=== PATIENT | female | born 2000 | race Caucasian/White ===

== ENCOUNTER 2022-07-12 16:27 | Emergency (ER) | payer MEDICAID, OTHER ==
[~2022-07-12] VITALS: Ht 167.6 cm; Wt 58.1 kg
[2022-07-12 17:30] LABS: HEMATOCRIT 38.3 % (31.2-41.9); MEAN CORPUSCULAR HEMOGLOBIN 29.4 uug (24.7-32.8); MEAN CORPUSCULAR VOLUME 86.3 fL (75.5-95.3); PLATELET COUNT (AUTO) 217 K/uL (179-408)
[2022-07-12] MEDS ORDERED: LORAZEPAM 0.5 MG TABLET PO ONE (17:30)
--- NOTE | 2022-07-12 17:36 | NUR ---
TEXT FOR MRI APPROVAL.
[2022-07-12 17:43] LABS: CREATININE 0.7 mg/dL (0.6-1.3); POTASSIUM 3.5 mmol/L (3.5-5.1)
[2022-07-12 17:49] LABS: BILIRUBIN,DIRECT 0.1 mg/dL (0.0-0.2); BILIRUBIN,TOTAL 0.5 mg/dL (0.2-1.0); TOTAL PROTEIN, SERUM 7.9 g/dL (6.4-8.2)
[2022-07-12 17:53] LABS: *CLARITY,URINE CLEAR (CLEAR); *COLOR,URINE YELLOW (YELLOW); *URINE HCG, QUAL NEG (NEGATIVE)
[2022-07-12] MEDS ORDERED: LORAZEPAM 1 MG TABLET ONE (17:53)
[2022-07-12 17:54] LABS: *BILIRUBIN,URIN NEGATIVE (NEGATIVE); *BLOOD, URINE NEGATIVE (NEGATIVE); *KETONES,URINE NEGATIVE (NEGATIVE); *UROBILINOGEN,URINE 0.2 E.U./dl (NORMAL); LEUKOCYTE ESTERASE ,URINE NEGATIVE (NEGATIVE); NITRITE, URINE NEGATIVE (NEGATIVE); UGLUCOSE NEGATIVE (NEGATIVE)
[2022-07-12 18:08] LABS: *AMPHETAMINE, URINE NEGATIVE (NEGATIVE); *CANNABINOID, URINE NEGATIVE (NEGATIVE); *COCCAINE, URINE NEGATIVE (NEGATIVE); *OPIATE, URINE NEGATIVE (NEGATIVE); *PHENCYCLIDINE SCREEN,URINE NEGATIVE (NEGATIVE)
--- NOTE | 2022-07-12 19:27 | NUR ---
clinical information and face sheet faxed to [facility] at fax number [phone].
--- NOTE | 2022-07-12 19:28 | NUR ---
pt aware she has a pending trasfer to another hosptial per her insurance company [facility] the hospital in unknown at this time. the pt needs an MRI.
[2022-07-12] MEDS ORDERED: QUETIAPINE FUMARATE 25 MG TABLET PO ONE (20:15)
--- NOTE | 2022-07-12 20:19 | NUR ---
pt wants to leave and call insurance later. Dr Anaya speaking with the pt.
--- NOTE | 2022-07-12 20:39 | NUR ---
Dr. Gaines called spoke with DR. Anaya.
--- NOTE | 2022-07-12 21:08 | NUR ---
Alanna from [facility] called and spoke with the er finished goods stock clerk and states the pt will go to [facility] and that they will call back with bed assignment and number for report. the pt's mother is at the bedside, Dr. Anaya is speaking with them.
--- NOTE | 2022-07-12 21:58 | NUR ---
Alanna with [facility] called states the pt will go to [facility] bed number 315a nurse is corine number for report is [phone]. she is requesting we call her back with an eta for the ambulance. the auth for ambulance is [id number].
--- NOTE | 2022-07-12 22:09 | NUR ---
I called [facility] ambulance at [phone] Srikanth says eta is 2 hours.
--- NOTE | 2022-07-12 23:48 | NUR ---
report given to Torres at [facility] pt will go to room 315a. report number is [phone].
--- NOTE | 2022-07-13 00:07 | NUR ---
[facility] rig [address] [facility] emt nicole ross and lenard gilman. report given and pt will be transported to [facility] room 315a. DANIELLE Mcadonald.
--- NOTE | 2022-07-13 00:30 | NUR ---
pt was transported to [facility]. by [facility]. pt mother accompanied in her private car.
== END 2022-07-13 00:32 | disposition short-term general hospital (02) ==
LOC: ER 16:30
DX: R20.0 Anesthesia of skin (principal); Z20.822 Contact with and (suspected) exposure to COVID-19
CPT/HCPCS: 36415; 82747; 84703; 85014; 85025; 85651; 93005; A4663

== ENCOUNTER 2024-12-03 22:56 | Emergency (ER) | payer MEDICAID, OTHER | END 2024-12-04 00:30 | disposition left against medical advice (07) | LOC: ER 22:56 | DX: H92.09 Otalgia, unspecified ear (principal); Z88.7 Allergy status to serum and vaccine ==